=== PATIENT | female | born 1960 | race Caucasian/White ===

== ENCOUNTER 2018-01-02 11:36 | Observation (INO) ==
--- NOTE | 2018-01-02 12:04 | Anesthesia Evaluation PreOp ---
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 RSD. Hx Bipolar d/o - hospitalized at least once for exacerbation w/ psychotic features) Other Medical History: Denies Any Significant HX Anesthesia History: No Prior Anesthetic Complications, Past Anesthesia (C- section x 2, C6-C7 ACDF, Hyster, Sinus surgery) Alcohol Use: none Drug use: none Medications and Allergies Albuterol Neb [Proventil Neb] 2.5 mg IH Q4HR PRN 01/02/18 [History] Albuterol Sulfate [Ventolin Hfa] 2 puff IH Q4H PRN 01/02/18 [History] Amitriptyline [Elavil] 25 mg PO HS 01/02/18 [History] Amlodipine Besylate [Amlodipine Besylate] 10 mg PO HS 01/02/18 [History] Calcium Carbonate/Vitamin D3 [Calcium 500 + Vit D Caplet] 1 tab PO DAILY [History] Cetirizine HCl [Cetirizine HCl] 10 mg PO DAILY 01/02/18 [History] Fluticasone Propionate Nasal [Flonase] 1 spr NS DAILY PRN 01/02/18 [History] Gabapentin [Neurontin] 300 mg PO BID 01/02/18 [History] Melatonin/Pyridoxine HCl (B6) [Melatonin 5 mg Tablet] 1 tab PO HS 01/02/18 [ History] Montelukast [Singulair] 10 mg PO HS 01/02/18 [History] Pravastatin Sodium [Pravachol] 40 mg PO HS 01/02/18 [History] diazePAM [Valium] 5 mg PO BID PRN 01/02/18 [History] 3 Allergy/AdvReac Type Severity Reaction Status Date / Time codeine Allergy Hives Verified 01/02/18 12:10 celecoxib [From Celebrex] AdvReac Palpitation Verified 01/02/18 12:10 s rofecoxib [From Vioxx] AdvReac Palpitation Verified 01/02/18 12:10 s - Meds/Allergy Pre-op Review Medications Reviewed: Yes Allergies Reviewed: Yes Beta Blockers on Current Med List: No Anesthesia Results - Labs Laboratory Tests 12/25/17 12/25/17 16:11 16:11 WBC 9.9 Hgb 13.9 Hct 40.1 Plt Count 201 Sodium 139 Potassium 3.9 Chloride 103 Carbon Dioxide 28 BUN 15 Creatinine 0.77 Est GFR (Non-Af Amer) > 60 - Imaging EKG: image reviewed (52bpm - SINUS BRADYCARDIA POSSIBLE ANTERIOR MYOCARDIAL INFARCTION, OF INDETERMINATE AGE Electronically Signed On 11-08-2017 16:40:26 EDT by Antoni Hollingsworth) Anesthesia Exam O2 Sat Height 1.57 m Height 1.57 m Weight 88.904 kg Weight 88.904 kg O2 Sat by Pulse Oximetry 95 Vital Signs Temp Pulse Resp BP Pulse Ox 97.6 F 74 18 134/59 95 01/02/18 12:02 01/02/18 12:02 01/02/18 12:02 01/02/18 12:02 01/02/18 12:02 Height: 5'2" Weight: 197# BMI = 36 NPO (# of Hours): MNOc - HEENT Pupil (Motor): Pupils equal, EOMI Mallampati: III Teeth: Edentulous Oral Opening: Greater than 3 - DRY ROLLER LOC: Oriented DRY ROLLER Motor: Normal RUE, Normal LUE, Normal RLE, Normal LLE, Normal Face DRY ROLLER Sensory: Normal: RUE, LUE, RLE, LLE, Face - Cardiac Rhythm: Regular Murmur: None - Pulmonary Breath Sounds: bilateral Clear Respiratory Effort: Symmetrical Anesthesia Assess/Plan ASA Score: 3 (Obesity, Anxiety/Depression, RSD, HTN, Chol, Smoker, Asthma)
[2018-01-02] MEDS ORDERED: Acetaminophen IV 1,000 MG/100 ML INFUS..BTL IVPB ONE (12:13)
[2018-01-02] MEDS ORDERED: Pregabalin 75 MG CAPSULE PO ONE (12:13)
[2018-01-02] MEDS ORDERED: Famotidine 20 MG/2 ML VIAL IVP ONE (12:13)
[2018-01-02] MEDS ORDERED: *HR* LORazepam 1 MG TABLET PO PRN (12:14)
[2018-01-02] MEDS ORDERED: CeFAZolin Syr 2,000MG/20 ML 2,000 MG/20 ML SYRINGE IVPB ONE (12:30)
[2018-01-02] MEDS ORDERED: Albuterol 2.5 MG/3 ML NEBULIZER IH ONE (12:30)
[2018-01-02] MEDS ORDERED: Ringers Solution, Lactated 1,000 ML IVC SCH (12:30)
[2018-01-02] MEDS ORDERED: Ondansetron 4 MG/2 ML VIAL ONE (12:46)
[2018-01-02] MEDS ORDERED: *HR* Succinylcholine 200 MG/10 ML VIAL IVP ONE (12:46)
[2018-01-02] MEDS ORDERED: Lidocaine -MPF 2% 2 ML VIAL ONE (12:46)
[2018-01-02] MEDS ORDERED: Dexamethasone 4 MG/ML VIAL ONE ×2 (12:46→14:33)
[2018-01-02] MEDS ORDERED: Ketorolac 30 MG/ML VIAL ONE (12:46)
[2018-01-02] MEDS ORDERED: *HR* Midazolam HCl 2 MG/2 ML VIAL ONE ×2 (12:47→12:48)
[2018-01-02] MEDS ORDERED: *HR* Propofol 200 MG/20 ML VIAL IVP ONE (12:47)
[2018-01-02] MEDS ORDERED: *HR* FentaNYL (PF) 100 MCG/2 ML VIAL ONE ×2 (12:47→14:58)
--- NOTE | 2018-01-02 12:58 | History & Physical Report ---
Date of Encounter: 01/02/18 Time of Encounter: 12:57 24 Hour HP Update - Instructions Instructions: If the History and Physical is less than 30 days old and was completed prior to A.M. admission and or procedure and has NOT been updated on calendar day of procedure please complete this update prior to performing procedure. - Update Patient reports changes in Medical Condition: No Changes in examination, assessment, or condition: No Changes in Medication: No Preop tests/diagnostics Reviewed: Yes Surgery Remains Indicated: Yes Consent for Planned Operative Procedure(s) Verified: Yes
--- NOTE | 2018-01-02 13:01 | Discharge Summary ---
Outpatient Proc Discharge Plan - Plan Additional Instructions: POST-OPERATIVE INSTRUCTIONS ARTHROSCOPIC SHOULDER REPAIR Your recovery after shoulder surgery can take 6-9 months (and sometimes up to a year) to fully recover. It takes 12 weeks for the repair to fully heal, so it is very important to follow all precautions after surgery as directed. These instructions are intended to help you control swelling and pain, and to allow your shoulder and repaired tissues to heal. These instructions are a general guideline, because no patient or procedure is the same. If needed, your surgeon will give you further specific instructions. SLING You are required to wear your sling at all times (including sleeping) until your follow up appointment. This is necessary to protect your repair. You may remove it to work on your hand, wrist, and elbow exercises, for getting dressed , and for hygiene. Otherwise, it should remain on at all times. ICE It is recommended to ice your shoulder for 20 minutes per hour using an ice pack, Cryo Cuff if provided, or a bag of frozen peas. Ice can be especially helpful for the first several days after surgery. It can then be used as needed for pain and swelling. PAIN BLOCK/PAIN CATHETER The pain block/catheter is intended for pain relief and can last for up to 48 hours. During this time, you will not experience pain and will not be able to move your hand and fingers. It will give you the sensation of your arm being paralyzed. THIS IS TEMPORARY UNTIL THE BLOCK WEARS OFF. It is recommended that you start your pain medication even though you are getting pain relief from the block. It is more difficult to control the pain once the block wears off, then to keep a constant level of the pain medication in your system. MEDICATIONS You should resume all of your normal medications after shoulder surgery. If you are on blood thinners, these should be discussed with our team to decide on a date to resume them (typically the day after surgery). You will be given prescriptions for pain medications: o Fill the pain medications immediately and begin taking the medications before your nerve block wears off. You are encouraged to take the pain medications as directed on the prescription, and on a regular schedule for the first 3-4 days after surgery. o Do not let the pain get "ahead" of the pain medications since then it will be very difficult for you to get adequate pain control. o Even with the nerve block from surgery, it is recommended that you start on the pain medications after surgery to avoid the block wearing off without having pain medications in your system. o As the pain decreases, you may decrease the pain medication and switch to extra strength Tylenol if needed. o Avoid driving and consuming alcohol while taking pain medication. o Common side effects of pain medication are nausea, drowsiness, and constipation. Consider taking medication with food, and also consider using an [id number]-ldtfiev stool softener. DRESSING Keep the surgical dressing clean and dry for the first 72 hours (3 days) after surgery. You may remove the dressing 3 days postop and apply Band-Aids over small incisions and you may tape gauze pads over the larger incisions. Please leave the Steri-Strips intact. They will fall off on their own. If you have drainage more than 5 days after surgery, please contact our office for advice. SHOWER You may shower and get the incisions wet 5 days after surgery, as long as there is no drainage from the incisions. Avoid letting the shower stream hit the incisions directly until the sutures are removed. DO NOT scrub incisions or soak under water (bathtub, swimming pool or hot tub etc.) Pat the shoulder dry and then re-apply the dressing SLEEPING You may find it more comfortable to sleep in a semi-reclined position (ie. recliner type chair or propped up on pillows) following shoulder surgery. You may return to sleeping in your bed whenever it feels comfortable to do so. EXERCISES You may come out of your sling 3-4 times/day to move your elbow, wrist, and hand and fingers. Remember no active motion of the shoulder (moving the arm without assistance from someone else) until follow up. We will make specific recommendations about physical therapy will be determined at your first postoperative appointment. FOLLOW UP APPOINTMENTS Your first follow up appointment is generally 10-14 days after surgery. Please refer to your preoperative packet for the date and time or contact the office after surgery to confirm this appointment. Please wait until after first follow up appointment for physical therapy instructions Wound care, pain management, and a review of your surgical procedure will be discussed at your first post-operative appointment Additional appointments are scheduled according to the type of surgery that you had and how you are progressing. PRECAUTIONS After anesthesia, rest for 24 hours. General anesthesia may cause a sore throat, jaw discomfort or muscle aches. These symptoms can last for one or two days. Do not drive, drink alcoholic beverages or make any important or legal decisions during this time. Avoid placing arm behind back (tucking in shirt, putting on belt), and do not lean on affected arm or use arm to push up from a seated or laying position. A good general rule is to keep your arm where you can see it. Keep your first few meals after surgery light and drink plenty of fluids, and some people are nauseas after surgery. Smoking increases your risk of infection and can delay healing times. If you smoke, you are encouraged to quit, cut back or at least quit smoking during the post-operative period. Pain medications are important for the first few days after surgery to treat postoperative pain. Addiction, tolerance, and side effects are a big concern. Decrease the pain medications as soon as you can. This is typically after the first few days. Most patients require narcotic pain medications only for the first few weeks after surgery (even large procedures). Prolonged use increases the risk of problems with these medications. NOTIFY THE OFFICE IMMEDIATELY IF YOU DEVELOP ANY OF THE FOLLOWING: Increased redness or swelling over the incision area Incision area is warm or hot to touch Incision has foul smelling drainage Relentless pain, nausea, vomiting, bleeding or drainage Severe calf pain or chest pain You develop a fever greater than 101.4 more than 48 hours after surgery If you having an emergency that requires immediate attention go to the nearest emergency room or call 911. Please contact the office with any other questions or concerns that you may have regarding your surgery. Home Medications: Albuterol Neb [Proventil Neb] 2.5 mg IH Q4HR PRN 01/02/18 [History] Albuterol Sulfate [Ventolin Hfa] 2 puff IH Q4H PRN 01/02/18 [History] Amitriptyline [Elavil] 25 mg PO HS 01/02/18 [History] Amlodipine Besylate [Amlodipine Besylate] 10 mg PO HS 01/02/18 [History] Calcium Carbonate/Vitamin D3 [Calcium 500 + Vit D Caplet] 1 tab PO DAILY [History] Cetirizine HCl [Cetirizine HCl] 10 mg PO DAILY 01/02/18 [History] Fluticasone Propionate Nasal [Flonase] 1 spr NS DAILY PRN 01/02/18 [History] Gabapentin [Neurontin] 300 mg PO BID 01/02/18 [History] Melatonin/Pyridoxine HCl (B6) [Melatonin 5 mg Tablet] 1 tab PO HS 01/02/18 [ History] Montelukast [Singulair] 10 mg PO HS 01/02/18 [History] Pravastatin Sodium [Pravachol] 40 mg PO HS 01/02/18 [History] diazePAM [Valium] 5 mg PO BID PRN 01/02/18 [History]
[2018-01-02] MEDS ORDERED: ROPIVACAINE HCL/PF 0.5% 30 ML VIAL ONE (13:09)
[2018-01-02] MEDS ORDERED: Bupivacaine/Clonidine Syringe 1 EACH SYRINGE ONE (13:09)
[2018-01-02] MEDS ORDERED: MethylPREDNISolone Acet(DEPOT) 80 MG/ML VIAL ONE (13:24)
[2018-01-02] MEDS ORDERED: *HR* EPINEPHrine 30 MG/30 ML MDV ONE (13:25)
[2018-01-02] MEDS ORDERED: Lidocaine/EPI 1:100k 1% 20 ML VIAL ONE (13:27)
[2018-01-02] MEDS ORDERED: Tetracaine/PF 20 MG/2 ML AMPUL ONE (13:28)
[2018-01-02] MEDS ORDERED: Lidocaine -MPF 4% 5 ML AMPUL ONE (14:31)
--- NOTE | 2018-01-02 15:25 | Discharge Summary ---
Outpatient Proc Discharge Plan - Plan Additional Instructions: POST-OPERATIVE INSTRUCTIONS ARTHROSCOPIC SHOULDER REPAIR Your recovery after shoulder surgery can take 6-9 months to fully recover. These instructions are intended to help you control swelling and pain, and to allow your shoulder to heal. These instructions are a general guideline, because no patient or procedure is the same. If needed, your surgeon will give you further specific instructions. SLING You may remove your sling as tolerated it to move your shoulder, hand, wrist , and elbow. When you are comfortable, you may discontinue the sling entirely. ICE It is recommended to ice your shoulder for 20 minutes per hour using an ice pack, Cryo Cuff if provided, or a bag of frozen peas. Ice can be especially helpful for the first several days after surgery. It can then be used as needed for pain and swelling. PAIN BLOCK/PAIN CATHETER The pain block/catheter is intended for pain relief and can last for up to 48 hours. During this time, you will not experience pain and will not be able to move your hand and fingers. It will give you the sensation of your arm being paralyzed. THIS IS TEMPORARY UNTIL THE BLOCK WEARS OFF. It is recommended that you start your pain medication even though you are getting pain relief from the block. It is more difficult to control the pain once the block wears off, then to keep a constant level of the pain medication in your system. MEDICATIONS You should resume all of your normal medications after shoulder surgery. If you are on blood thinners, these should be discussed with our team to decide on a date to resume them (typically the day after surgery). You will be given prescriptions for pain medications: o Fill the pain medications immediately and begin taking the medications before your nerve block wears off. You are encouraged to take the pain medications as directed on the prescription, and on a regular schedule for the first 3-4 days after surgery. o Do not let the pain get "ahead" of the pain medications since then it will be very difficult for you to get adequate pain control. o Even with the nerve block from surgery, it is recommended that you start on the pain medications after surgery to avoid the block wearing off without having pain medications in your system. o As the pain decreases, you may decrease the pain medication and switch to extra strength Tylenol if needed. o Avoid driving and consuming alcohol while taking pain medication. o Common side effects of pain medication are nausea, drowsiness, and constipation. Consider taking medication with food, and also consider using an nixz-cpf-cuamcek stool softener. DRESSING Keep the surgical dressing clean and dry for the first 72 hours (3 days) after surgery. You may remove the dressing 3 days postop and apply Band-Aids over small incisions and you may tape gauze pads over the larger incisions. Please leave the Steri-Strips intact. They will fall off on their own. If you have drainage more than 5 days after surgery, please contact our office for advice. SHOWER You may shower and get the incisions wet 5 days after surgery, as long as there is no drainage from the incisions. Avoid letting the shower stream hit the incisions directly until the sutures are removed. DO NOT scrub incisions or soak under water (bathtub, swimming pool or hot tub etc.) Pat the shoulder dry and then re-apply the dressing SLEEPING You may find it more comfortable to sleep in a semi-reclined position (ie. recliner type chair or propped up on pillows) following shoulder surgery. You may return to sleeping in your bed whenever it feels comfortable to do so. EXERCISES We will make specific recommendations about physical therapy will be determined at your first postoperative appointment. FOLLOW UP APPOINTMENTS Your first follow up appointment is generally 10-14 days after surgery. Please refer to your preoperative packet for the date and time or contact the office after surgery to confirm this appointment. Please wait until after first follow up appointment for physical therapy instructions Wound care, pain management, and a review of your surgical procedure will be discussed at your first post-operative appointment Additional appointments are scheduled according to the type of surgery that you had and how you are progressing. PRECAUTIONS After anesthesia, rest for 24 hours. General anesthesia may cause a sore throat, jaw discomfort or muscle aches. These symptoms can last for one or two days. Do not drive, drink alcoholic beverages or make any important or legal decisions during this time. Keep your first few meals after surgery light and drink plenty of fluids, and some people are nauseas after surgery. Smoking increases your risk of infection and can delay healing times. If you smoke, you are encouraged to quit, cut back or at least quit smoking during the post-operative period. Pain medications are important for the first few days after surgery to treat postoperative pain. Addiction, tolerance, and side effects are a big concern. Decrease the pain medications as soon as you can. This is typically after the first few days. Most patients require narcotic pain medications only for the first few weeks after surgery (even large procedures). Prolonged use increases the risk of problems with these medications. NOTIFY THE OFFICE IMMEDIATELY IF YOU DEVELOP ANY OF THE FOLLOWING: Increased redness or swelling over the incision area Incision area is warm or hot to touch Incision has foul smelling drainage Relentless pain, nausea, vomiting, bleeding or drainage Severe calf pain or chest pain You develop a fever greater than 101.4 more than 48 hours after surgery If you having an emergency that requires immediate attention go to the nearest emergency room or call 911. Please contact the office with any other questions or concerns that you may have regarding your surgery. Home Medications: Albuterol Neb [Proventil Neb] 2.5 mg IH Q4HR PRN 01/02/18 [History] Albuterol Sulfate [Ventolin Hfa] 2 puff IH Q4H PRN 01/02/18 [History] Amitriptyline [Elavil] 25 mg PO HS 01/02/18 [History] Amlodipine Besylate [Amlodipine Besylate] 10 mg PO HS 01/02/18 [History] Calcium Carbonate/Vitamin D3 [Calcium 500 + Vit D Caplet] 1 tab PO DAILY [History] Cetirizine HCl [Cetirizine HCl] 10 mg PO DAILY 01/02/18 [History] Fluticasone Propionate Nasal [Flonase] 1 spr NS DAILY PRN 01/02/18 [History] Gabapentin [Neurontin] 300 mg PO BID 01/02/18 [History] Melatonin/Pyridoxine HCl (B6) [Melatonin 5 mg Tablet] 1 tab PO HS 01/02/18 [ History] Montelukast [Singulair] 10 mg PO HS 01/02/18 [History] Pravastatin Sodium [Pravachol] 40 mg PO HS 01/02/18 [History] diazePAM [Valium] 5 mg PO BID PRN 01/02/18 [History]
[2018-01-02] MEDS ORDERED: *HR* OxyCODONE/APAP 5/325 TABLET PO ONE (15:26)
--- NOTE | 2018-01-02 15:38 | Orthopedic Operative Note ---
Date of procedure: 01/02/18 Procedure: Procedure: 1. Right shoulder arthroscopic extensive debridement 2. Right shoulder arthroscopic biceps tenodesis 3. Right shoulder arthroscopic subacromial decompression Preoperative Diagnosis: Right shoulder biceps tendonitis, impingement, rotator cuff tear Postoperative Diagnosis: Right shoulder biceps tendonitis, impingement, partial thickness articular sided rotator cuff tear involving less than 50% tendon insertion Surgeon: Matthieu Eldridge MD Recordings Librarian: none Anesthesia: General with regional block EBL: 5 cc Complications: None INDICATIONS: This is a 57 yo F with a long history of right shoulder pain, worse over the past few months, with exam and imaging findings consistent with biceps tendonitis, partial thickness rotator cuff tear and impingement. The patient had continued pain despite extensive non-operative management, including injections, therapy and anti-inflammatories, and so at this point elected for right shoulder arthroscopy with glenohumeral debridement, biceps tenodesis, possible rotator cuff repair and subacromial decompression and treatments of other injuries as indicated. The risks and benefits of the procedure were fully explained. Those risks include but are not limited to, infection, neurovascular injury, continued pain, arthritis, stiffness of the shoulder, further injury, need for further surgery, DVT, PE, loss of limb, and loss of life. The patient understood all of these risks and wished to proceed. Informed consent was obtained. OPERATIVE REPORT: The patient was identified in the holding area. The right upper extremity was marked, the patient was taken to the operating room and placed in the supine position. All bony prominences were well padded. The anesthesiologist performed successful general anesthetic for the remainder of the case. The patient's head, neck and airway were secured and monitored throughout the case by anesthesia. The patient was then placed in the beachchair position. Preoperative antibiotics were given prior to incision. Surgical timeout was performed. A standard posterior portal was established. Diagnostic shoulder arthroscopy was then performed. The glenohumeral joint was intact with minimal cartilage wear on the glenoid. There was degenerative tearing of the anterior and superior labrum. The biceps showed significant wear with intraarticular tenosynovitis and tearing near its insertion at the superior labrum. There were no loose bodies within the joint. The rotator cuff showed partial thickness articular sided tearing with less than 5mm exposure of the greater tuberosity. Subscapularis was intact. An anterior portal was then established using an outside in technique. Biceps tenodesis was then performed using the RAUL technique. The biceps was marked with a spinal needle and #2 fiberwire was shuttled in a mattress fashion through the tendon. The biceps tendon was then removed from the insertion on the labrum. Shaver was introduced into the joint and the frayed aspect of the anterior and superior labrum was mechanically debrided, as was the undersurface of the rotator cuff. A PDS was used to medina the rotator cuff tear. The arthroscope was then placed into the anterior portal to better view the posterior structures and ensure no other injury. The arthroscope was then removed from the joint and placed into the subacromial space from the posterior portal. There was a large amount of inflamed bursa in the subacromial space. Lateral portal was established using outside in technique. Shaver was introduced in the subacromial space and the bursa was debrided. The biceps sutures were retrieved and tied through a cannula, anchoring the biceps in the bicipital groove and completing the suprapectoral tenodesis. The rotator cuff was visualized from both posterior and lateral portal and was found to be intact and moved well as a unit. There was a large anterolateral acromial spur. Cautery was used to reflect the CA ligament off the anterior acromion without full removal of the ligament. A valeria was then used to remove the anterior acromial spur and complete subacromial decompression. The arthroscope was then removed from the joint. Portals were closed with 3-0 nylon. A sterile dressing was placed and the patient was placed in a sling. The patient was awoken and taken to the PACU in stable condition. There were no complications. Post op plan: The patient will follow the biceps tenodesis protocol Was there an electrician's assistant present: No Estimated blood loss (cc): 5
--- NOTE | 2018-01-02 19:12 | Anesthesia Evaluation Post Op ---
Date of Encounter: 01/02/18 Time of Encounter: 19:10 - Vital Signs Vital Signs: Vital Signs/O2 Sat/Glucose, Most Current Temp Pulse Resp BP Pulse Ox 01/02/18 18:42 82 16 130/82 91 01/02/18 18:12 87 16 121/72 91 01/02/18 18:02 97.9 F 80 16 128/70 92 01/02/18 17:52 82 16 119/75 92 01/02/18 17:42 85 16 115/66 93 01/02/18 17:32 98.0 F 81 16 118/68 88 01/02/18 17:22 82 16 98/65 93 01/02/18 17:12 87 16 123/68 92 01/02/18 17:02 97.7 F 85 16 113/62 94 01/02/18 16:52 88 16 130/61 93 01/02/18 16:42 81 16 115/61 95 01/02/18 16:32 97.8 F 80 16 106/65 99 01/02/18 16:22 82 16 115/63 99 01/02/18 16:12 84 14 122/64 99 01/02/18 16:02 97.7 F 78 20 138/80 93 - Lungs Lungs: Clear Ascult./Percussion - Airway Airway: Non-obstructed (Pt has an O2 requirement post-operatively and does not meet criteria for discharge to home. Pt to be admitted to hospitalist for overnight observation.) - Cardiovascular Regular Rate - Mental Status Mental Status: Alert & Oriented, Answers Appropriately - Pain Pain Scale: 0 Pain Scale used: Numeric (1 - 10) - Nausea Vomiting Nausea Vomiting: Not Present - Hydration Hydration: Ice chips - Discharge PostOp Status: Transfer Patient to floor Anes Supervising Prov Stmt: Pt seen/evaluated, VSS and pt has met criteria for discharge to floor. - MD Nathaniel
[2018-01-02] MEDS: *HR* FentaNYL (PF) 100 MCG/2 ML VIAL IVP PRN ×2 (20:51→22:09)
[2018-01-02] MEDS ORDERED: Acetaminophen 325 MG TABLET PO PRN (21:11)
[2018-01-02] MEDS ORDERED: Naloxone 0.4 MG/ML INJ IVP PRN (21:11)
[2018-01-02] MEDS ORDERED: *HR* OxyCODONE Immed Rel 5 MG TABLET PO PRN (21:11)
[2018-01-02] MEDS ORDERED: Ipratropium/Albuterol Neb 3 ML IH PRN (21:16)
[2018-01-02] MEDS ORDERED: Fluticasone Propionate Nasal 50 MCG/SPRAY BOTTLE NS PRN (21:18)
--- NOTE | 2018-01-02 21:21 | Internal Med History&Physical ---
<Marco Viramontes - Last Filed: 01/02/18 22:09> Date of Encounter: 01/02/18 Time of Encounter: 21:21 Internal Medicine - H&P: HPI Chief complaint: Shortness of breath History of present illness: Ms. Hannah is a 57 year old female history of hypertension, seasonal allergies, asthma, former secondhand admitted for hypoxia from PACU. Patient is postop day 0 from a right rotator cuff repair. Patient was hypoxic requiring noninvasive positive pressure ventilation immediately during the postoperative course. Patient states that she does not typically wear home oxygen. Patient denies any history of smoking however notes former history of secondhand smoke. Patient reports a nonproductive cough that is lasted chronically for years. Patient also notes shortness of breath that has lasted for several months. Patient reported chest pain earlier today that was related to movement in the postoperative period. Patient denies any chest pain currently. Patient denies any fevers. Patient denies any lower leg swelling. Patient reports that she does snore however does not wear a CPAP machine at night. Patient denies any abdominal pain or nausea or vomiting. Reports use of her inhaler at home as well as allergy medications for her seasonal allergies. Patient denies history of heart disease, heart attacks or stents. Patient was seen at bedside in the stepdown. Patient's on 2 L nasal cannula. Patient had a chest x-ray which showed atelectasis without focal infiltrate. Patient's lungs appear clear. Patient's resting comfortably. Past Med Surg Social Fam HX - Past Medical History Medical history: arthritis, asthma, hyperlipidemia, hypertension, other Psychiatric history: anxiety, bipolar, depression, panic disorder, prior suicide attempt - Past Surgical History Surgical History: appendectomy, cholecystectomy, hysterectomy - Social History Smoking Status: Never smoker Smokeless Tobacco Status: No Alcohol use: none Drug use: none - Family History Mother Hx Family Cardiac Disorders: Yes (HTN, CT) Hx Family Cancer: Yes (lung, lymphoma) Father Hx Family Cardiac Disorders: Yes (CT) Hx Family Respiratory Disorders: Yes (COPD) Internal Medicine - H&P: Meds Albuterol Neb [Proventil Neb] 2.5 mg IH Q4HR PRN 01/02/18 [History] Albuterol Sulfate [Ventolin Hfa] 2 puff IH Q4H PRN 01/02/18 [History] Amitriptyline [Elavil] 25 mg PO HS 01/02/18 [History] Amlodipine Besylate [Amlodipine Besylate] 10 mg PO HS 01/02/18 [History] Calcium Carbonate/Vitamin D3 [Calcium 500 + Vit D Caplet] 1 tab PO DAILY [History] Cetirizine HCl [Cetirizine HCl] 10 mg PO DAILY 01/02/18 [History] Fluticasone Propionate Nasal [Flonase] 1 spr NS DAILY PRN 01/02/18 [History] Gabapentin [Neurontin] 300 mg PO BID 01/02/18 [History] Melatonin/Pyridoxine HCl (B6) [Melatonin 5 mg Tablet] 1 tab PO HS 01/02/18 [ History] Montelukast [Singulair] 10 mg PO HS 01/02/18 [History] Pravastatin Sodium [Pravachol] 40 mg PO HS 01/02/18 [History] diazePAM [Valium] 5 mg PO BID PRN 01/02/18 [History] 3 Allergy/AdvReac Type Severity Reaction Status Date / Time codeine Allergy Hives Verified 01/02/18 12:10 celecoxib [From Celebrex] AdvReac Palpitation Verified 01/02/18 12:10 s rofecoxib [From Vioxx] AdvReac Palpitation Verified 01/02/18 12:10 s All Systems PM: A 10-system review of systems was performed and is negative for pertinent findings except as documented above in the HPI. - Constitutional Constitutional: as per HPI, no chills, no fever(s) - Cardiovascular Cardiovascular ROS IM: as per HPI, chest pain - Respiratory Respiratory: as per HPI, dyspnea, dyspnea on exertion, snoring - Gastrointestinal Gastrointestinal: as per HPI - Genitourinary Genitourinary: as per HPI - Neurological Neurological ROS: as per HPI - Constitutional Vitals: Temp Pulse Resp BP Pulse Ox 97.9 F 89 16 142/75 92 01/02/18 18:02 01/02/18 19:38 01/02/18 19:38 01/02/18 19:38 01/02/18 19:38 General appearance: Present: cooperative, A&O X 3, obese, answers questions appropriately - Head Head exam: Present: atraumatic, normocephalic - Eye Eye exam: Present: EOMI, PERRL - ENT ENT exam: Present: mucous membranes moist - Neck Neck exam general surgery: Present: full ROM, normal inspection - Respiratory Respiratory exam: Present: CTAB. Absent: accessory muscle use, prolonged expiratory phase, wheezes - Cardiovascular Cardiovascular exam: Present: +S1, +S2 - GI/Abdominal GI/Abdominal exam: Absent: firm, guarding, tenderness - Extremities Exam Extremities exam: Present: normal inspection. Absent: pedal edema Additional comments: Right shoulder and immobilizer. Dressings appear clear dry and intact. Brisk cap refill. - Neurological Exam Neurological exam: Present: alert, CN II-XII intact, no focal deficits Internal Med - H&P Results - Impressions ITS Impressions Shoulder X-Ray 01/02/18 00:00 IMPRESSION: 1. No acute abnormality. D/ / Dagoberto Montalvo MD / Dagoberto Montalvo MD Interpreting Provider: Dagoberto Montalvo MD Chest X-Ray 01/02/18 15:39 IMPRESSION: 1. Hypoinflated lungs and bilateral subsegmental atelectasis. 2. ETT tip 1.9 cm above the amy. D/ / Sarah Paulino MD / Sarah Paulino MD Interpreting Provider: Sarah Paulino MD - Assessment and plan (1) Hypoxia Current Visit: Yes Status: Acute Assessment and plan: Patient was found to have oxygen saturation in the mid 80s following general anesthesia with her rotator cuff repair. Etiology possibly related to anesthetic medications in the setting of subclinical MACIEJ. Patient denies having history of supple oxygen at home. Patient notes chronic dyspnea for several years. Denies history of tobacco use reports a history of reactive airway. Patient did have a nerve block for the procedure. Chest x-ray in the postoperative period shows findings consistent with atelectasis and hyperinflated lungs. Patient likely has an element of obstructive airway disease and may require the use of CPAP. Plan -Titrate supplemental oxygen -incentive spirometry -DuoNeb's (2) Hypertension Current Visit: Yes Status: Acute Assessment and plan: Elevated blood pressures noted during the hospital course. Patient is on amlodipine. Will restart home meds. Qualifiers: Hypertension type: unspecified Qualified Code(s): I10 - Essential (primary ) hypertension (3) S/P right rotator cuff repair Current Visit: Yes Status: Acute Assessment and plan: Management per orthopedics. (4) DVT prophylaxis Current Visit: Yes Status: Acute Assessment and plan: Subcutaneous heparin - Time Spent With Patient Total time spent is greater than 50% in coordination of care (as documented) at patient's floor/unit and/or counseling patient: <Altagracia Montana - Last Filed: 01/03/18 05:27> Date of Encounter: 01/03/18 Internal Medicine - H&P: HPI History of present illness: Ms. Hannah is a 57 year old female All Systems PM: A 10-system review of systems was performed and is negative for pertinent findings except as documented above in the HPI. - Constitutional Vitals: Temp Pulse Resp BP Pulse Ox 98.9 F 85 16 114/60 92 01/03/18 03:30 01/03/18 03:30 01/03/18 03:30 01/03/18 03:30 01/03/18 03:30 Internal Med - H&P Results - Labs CBC & Chem 7: 01/02/18 21:55 01/02/18 21:55 Labs: Short CBC 01/02/18 Range/Units 21:55 WBC 10.9 (4.3-11.1) K/mcL Hgb 13.0 (11.5-15.4) g/dL Hct 38.8 (35.3-44.9) % Plt Count 186 (140-400) K/mcL Neutrophils # 9.8 H (1.6-8.9) K/mcL BMP 01/02/18 21:55 Sodium 141 Potassium 3.7 Chloride 107 Carbon Dioxide 23 BUN 11 Creatinine 0.75 Glucose 282 H Calcium 8.6 - Impressions ITS Impressions Shoulder X-Ray 01/02/18 00:00 IMPRESSION: 1. No acute abnormality. D/ / Dagoberto Montalvo MD / Dagoberto Montalvo MD Interpreting Provider: Dagoberto Montalvo MD Chest X-Ray 01/02/18 15:39 IMPRESSION: 1. Hypoinflated lungs and bilateral subsegmental atelectasis. 2. ETT tip 1.9 cm above the amy. D/ / Sarah Paulino MD / Sarah Paulino MD Interpreting Provider: Sarah Paulino MD - Attending Attestation I have seen and examined this patient independently. I have discussed with resident physician Dr Viramontes regarding the management plan. Agree with the documentation. - Time Spent With Patient Total time spent is greater than 50% in coordination of care (as documented) at patient's floor/unit and/or counseling patient:
[2018-01-02] MEDS: Melatonin 3 MG TABLET PO SCH (22:09)
[2018-01-02] MEDS: Pyridoxine (B-6) 50 MG TABLET PO SCH (22:10)
[2018-01-02 22:27] LABS: Basophils % 0.2 %; Eosinophils % 0.1 %; Hematocrit 38.8 % (35.3-44.9); Immature Granulocytes % 0.6 % (0-4); Lymphocytes % 9.1 %; Mean Corpuscular HGB Conc 33.5 g/dL (31.6-35.5); Mean Corpuscular Hemoglobin 29.3 pg (28.0-33.3); Mean Corpuscular Volume 87.6 fL (83.0-100.0); Mean Platelet Volume 10.8 fL (9.4-12.4); Monocytes # 0.1 K/mcL (0.0-1.3); Monocytes % 0.5 %; Neutrophils # 9.8 K/mcL (1.6-8.9); Platelet Count 186 K/mcL (140-400); Red Blood Count 4.43 M/mcL (3.82-4.97); Red Cell Distribution Width 12.5 % (11.5-14.5); Segmented Neutrophils % 89.5 %
[2018-01-02 22:42] LABS: BUN/Creatinine Ratio 15 (6-26); Blood Urea Nitrogen 11 mg/dL (6-20); Calcium 8.6 mg/dL (8.6-10.3); Carbon Dioxide 23 mEq/L (23-29); Chloride 107 mEq/L (98-107); Glucose 282 mg/dL (70-105); Osmolality,Calculated 302 (280-300); Potassium 3.7 mEq/L (3.5-5.1); Sodium 141 mEq/L (136-145); eGFR For African Americans > 60 (> 60); eGFR For Non-African Americans > 60 (> 60)
[2018-01-03] MEDS: amLODIPine 5 MG TABLET PO SCH ×2 (00:31→20:51)
[2018-01-03] MEDS: *HR* HYDROcodone/Acet 5/325 mg TABLET PO PRN ×3 (00:31→15:15)
[2018-01-03] MEDS: *HR* FentaNYL (PF) 100 MCG/2 ML VIAL IVP PRN (03:22)
[2018-01-03 05:52] LABS: BUN/Creatinine Ratio 16 (6-26); Blood Urea Nitrogen 11 mg/dL (6-20); Calcium 8.8 mg/dL (8.6-10.3); Carbon Dioxide 25 mEq/L (23-29); Chloride 104 mEq/L (98-107); Glucose 249 mg/dL (70-105); Osmolality,Calculated 292 (280-300); Potassium 3.9 mEq/L (3.5-5.1); Sodium 137 mEq/L (136-145); eGFR For African Americans > 60 (> 60); eGFR For Non-African Americans > 60 (> 60)
[2018-01-03 05:53] LABS: Basophils % 0.1 %; Hematocrit 37.6 % (35.3-44.9); Hemoglobin 12.5 g/dL (11.5-15.4); Immature Granulocytes % 0.5 % (0-4); Lymphocytes # 1.1 K/mcL (0.6-4.6); Lymphocytes % 9.5 %; Mean Corpuscular HGB Conc 33.2 g/dL (31.6-35.5); Mean Corpuscular Hemoglobin 29.5 pg (28.0-33.3); Mean Corpuscular Volume 88.7 fL (83.0-100.0); Mean Platelet Volume 11.2 fL (9.4-12.4); Monocytes # 0.2 K/mcL (0.0-1.3); Neutrophils # 10.4 K/mcL (1.6-8.9); Platelet Count 188 K/mcL (140-400); Red Blood Count 4.24 M/mcL (3.82-4.97); Red Cell Distribution Width 12.6 % (11.5-14.5); Segmented Neutrophils % 87.9 %
[2018-01-03] MEDS: *HR* OxyCODONE/APAP 5/325 TABLET PO PRN ×3 (06:19→20:50)
[2018-01-03] MEDS: *HR* Heparin 5,000 UNIT/ML VIAL SQ SCH ×2 (06:19→17:09)
[2018-01-03] MEDS: Gabapentin 300 MG CAPSULE PO SCH ×2 (08:02→20:51)
[2018-01-03] MEDS: Loratadine 10 MG TABLET PO SCH (08:02)
--- NOTE | 2018-01-03 08:07 | Orthopedics Progress Note ---
Date of Encounter: 01/03/18 Time of Encounter: 08:03 Subjective Interval history: POD#1 s/p R shoulder arthroscopy, admitted post op for hypoxia, inability to wean off O2. Currently on 2L O2, denies CP or SOB. R shoulder block worn off, comfortable with minimal pain. O: AFVSS, 95% on 2L NC GEN: NAD, AAOx3 RUE: Dressing clean, dry, intact No surrounding erythema DNVI with motor and sensory exam intact over Ax/M/R/U 2+ radial pulse A/P: POD#1 s/p R shoulder arthroscopy with debridement, subacromial decompression, biceps tenodesis, admitted post op for hypoxia -Medical management per hospitalist group, appreciate recs -PT for right shoulder ordered to start ROM exercises -Follow up with me as scheduled Objective Vital signs: Vital Signs Temp Pulse Resp BP Pulse Ox 01/03/18 07:39 97.7 F 66 16 119/65 95 01/03/18 03:30 98.9 F 85 16 114/60 92 01/03/18 03:15 80 01/03/18 00:30 100 01/02/18 23:29 98.1 F 99 16 141/79 92 01/02/18 22:56 16 92 01/02/18 20:45 109 93 01/02/18 20:20 98.3 F 89 16 158/84 92 01/02/18 19:38 89 16 142/75 92 01/02/18 19:12 89 16 124/66 92 01/02/18 18:42 82 16 130/82 91 01/02/18 18:12 87 16 121/72 91 01/02/18 18:02 97.9 F 80 16 128/70 92 01/02/18 17:52 82 16 119/75 92 01/02/18 17:42 85 16 115/66 93 01/02/18 17:32 98.0 F 81 16 118/68 88 01/02/18 17:22 82 16 98/65 93 01/02/18 17:12 87 16 123/68 92 01/02/18 17:02 97.7 F 85 16 113/62 94 01/02/18 16:52 88 16 130/61 93 01/02/18 16:42 81 16 115/61 95 01/02/18 16:32 97.8 F 80 16 106/65 99 01/02/18 16:22 82 16 115/63 99 01/02/18 16:12 84 14 122/64 99 01/02/18 16:02 97.7 F 78 20 138/80 93 01/02/18 13:41 77 18 133/100 97 01/02/18 12:31 97.6 F 74 18 134/59 95 01/02/18 12:02 97.6 F 74 18 134/59 95 Intake and Output 01/02/18 01/03/18 01/03/18 23:59 07:59 15:59 Intake Total 240 / 240 Output Total 1100 / 1100 300 / 300 Balance -860 / -860 -300 / -300 Intake: Oral 240 / 240 Output: Urine 1100 / 1100 300 / 300 - Labs CBC & BMP: 01/03/18 05:09 01/03/18 05:09 Labs: Abnormal lab results WBC 11.9 K/mcL (4.3-11.1) H 01/03/18 05:09 Neutrophils # 10.4 K/mcL (1.6-8.9) H 01/03/18 05:09 Glucose 249 mg/dL (70-105) H 01/03/18 05:09 - VTE Documentation of Mechanical Device: Venous foot pump, device Consult Discharge Plan - Plan Additional Instructions: POST-OPERATIVE INSTRUCTIONS ARTHROSCOPIC SHOULDER REPAIR Your recovery after shoulder surgery can take 6-9 months to fully recover. These instructions are intended to help you control swelling and pain, and to allow your shoulder to heal. These instructions are a general guideline, because no patient or procedure is the same. If needed, your surgeon will give you further specific instructions. SLING You may remove your sling as tolerated it to move your shoulder, hand, wrist , and elbow. When you are comfortable, you may discontinue the sling entirely. ICE It is recommended to ice your shoulder for 20 minutes per hour using an ice pack, Cryo Cuff if provided, or a bag of frozen peas. Ice can be especially helpful for the first several days after surgery. It can then be used as needed for pain and swelling. PAIN BLOCK/PAIN CATHETER The pain block/catheter is intended for pain relief and can last for up to 48 hours. During this time, you will not experience pain and will not be able to move your hand and fingers. It will give you the sensation of your arm being paralyzed. THIS IS TEMPORARY UNTIL THE BLOCK WEARS OFF. It is recommended that you start your pain medication even though you are getting pain relief from the block. It is more difficult to control the pain once the block wears off, then to keep a constant level of the pain medication in your system. MEDICATIONS You should resume all of your normal medications after shoulder surgery. If you are on blood thinners, these should be discussed with our team to decide on a date to resume them (typically the day after surgery). You will be given prescriptions for pain medications: o Fill the pain medications immediately and begin taking the medications before your nerve block wears off. You are encouraged to take the pain medications as directed on the prescription, and on a regular schedule for the first 3-4 days after surgery. o Do not let the pain get "ahead" of the pain medications since then it will be very difficult for you to get adequate pain control. o Even with the nerve block from surgery, it is recommended that you start on the pain medications after surgery to avoid the block wearing off without having pain medications in your system. o As the pain decreases, you may decrease the pain medication and switch to extra strength Tylenol if needed. o Avoid driving and consuming alcohol while taking pain medication. o Common side effects of pain medication are nausea, drowsiness, and constipation. Consider taking medication with food, and also consider using an [id number] stool softener. DRESSING Keep the surgical dressing clean and dry for the first 72 hours (3 days) after surgery. You may remove the dressing 3 days postop and apply Band-Aids over small incisions and you may tape gauze pads over the larger incisions. Please leave the Steri-Strips intact. They will fall off on their own. If you have drainage more than 5 days after surgery, please contact our office for advice. SHOWER You may shower and get the incisions wet 5 days after surgery, as long as there is no drainage from the incisions. Avoid letting the shower stream hit the incisions directly until the sutures are removed. DO NOT scrub incisions or soak under water (bathtub, swimming pool or hot tub etc.) Pat the shoulder dry and then re-apply the dressing SLEEPING You may find it more comfortable to sleep in a semi-reclined position (ie. recliner type chair or propped up on pillows) following shoulder surgery. You may return to sleeping in your bed whenever it feels comfortable to do so. EXERCISES We will make specific recommendations about physical therapy will be determined at your first postoperative appointment. FOLLOW UP APPOINTMENTS Your first follow up appointment is generally 10-14 days after surgery. Please refer to your preoperative packet for the date and time or contact the office after surgery to confirm this appointment. Please wait until after first follow up appointment for physical therapy instructions Wound care, pain management, and a review of your surgical procedure will be discussed at your first post-operative appointment Additional appointments are scheduled according to the type of surgery that you had and how you are progressing. PRECAUTIONS After anesthesia, rest for 24 hours. General anesthesia may cause a sore throat, jaw discomfort or muscle aches. These symptoms can last for one or two days. Do not drive, drink alcoholic beverages or make any important or legal decisions during this time. Keep your first few meals after surgery light and drink plenty of fluids, and some people are nauseas after surgery. Smoking increases your risk of infection and can delay healing times. If you smoke, you are encouraged to quit, cut back or at least quit smoking during the post-operative period. Pain medications are important for the first few days after surgery to treat postoperative pain. Addiction, tolerance, and side effects are a big concern. Decrease the pain medications as soon as you can. This is typically after the first few days. Most patients require narcotic pain medications only for the first few weeks after surgery (even large procedures). Prolonged use increases the risk of problems with these medications. NOTIFY THE OFFICE IMMEDIATELY IF YOU DEVELOP ANY OF THE FOLLOWING: Increased redness or swelling over the incision area Incision area is warm or hot to touch Incision has foul smelling drainage Relentless pain, nausea, vomiting, bleeding or drainage Severe calf pain or chest pain You develop a fever greater than 101.4 more than 48 hours after surgery If you having an emergency that requires immediate attention go to the nearest emergency room or call 911. Please contact the office with any other questions or concerns that you may have regarding your surgery. Referrals: Lois Mitchell CNP [Primary Care Provider] -
[2018-01-03] MEDS: diazePAM 5 MG TABLET PO PRN ×2 (09:59→20:58)
[2018-01-03 12:11] LABS: Estimated Average Glucose 128 mg/dl; Hemoglobin A1C 6.1 %
[2018-01-03] MEDS ORDERED: Dextrose Gel 15 GM/37.5 ML TUBE PO PRN ×2 (14:08)
[2018-01-03] MEDS ORDERED: *HR* Dextrose 50 % in Water (Syg) 50 ML SYRINGE IVP PRN (14:08)
[2018-01-03] MEDS ORDERED: D5% in Water 1,000 ML IVC PRN (14:08)
[2018-01-03] MEDS: Insulin LISPRO 300 UNITS/3 ML VIAL SQ SCH ×2 (17:12→22:31)
--- NOTE | 2018-01-03 20:44 | Internal Med Progress Note ---
Date of Encounter: 01/03/18 Time of Encounter: 19:00 - Assessment and plan (1) Hypoxia Status: Acute (2) Asthma due to environmental allergies Status: Chronic (3) Hypertension Status: Acute Qualifiers: Hypertension type: essential hypertension Qualified Code(s): I10 - Essential (primary) hypertension (4) S/P right rotator cuff repair Status: Acute - Time Spent With Patient Total time spent is greater than 50% in coordination of care (as documented) at patient's floor/unit and/or counseling patient: - Constitutional Vitals: Temp Pulse Resp BP Pulse Ox 98.1 F 78 16 143/89 95 01/03/18 18:49 01/03/18 18:49 01/03/18 18:49 01/03/18 18:49 01/03/18 18:49 General appearance: Present: cooperative, A&O X 3, obese, answers questions appropriately Internal Medicine: Result - Labs CBC & Chem 7: 01/03/18 05:09 01/03/18 05:09 Labs: Short CBC 01/02/18 01/03/18 Range/Units 21:55 05:09 WBC 10.9 11.9 H (4.3-11.1) K/mcL Hgb 13.0 12.5 (11.5-15.4) g/dL Hct 38.8 37.6 (35.3-44.9) % Plt Count 186 188 (140-400) K/mcL Neutrophils # 9.8 H 10.4 H (1.6-8.9) K/mcL BMP 01/02/18 01/03/18 21:55 05:09 Sodium 141 137 Potassium 3.7 3.9 Chloride 107 104 Carbon Dioxide 23 25 BUN 11 11 Creatinine 0.75 0.70 Glucose 282 H 249 H Calcium 8.6 8.8 Cardiac Enzymes 01/03/18 Range/Units 10:34 Troponin I < 0.03 (< 0.04) ng/mL - Impressions Impressions Shoulder X-Ray 01/02/18 00:00 IMPRESSION: 1. No acute abnormality. D/ / Dagoberto Montalvo MD / Dagoberto Montalvo MD Interpreting Provider: Dagoberto Montalvo MD - VTE Documentation of Mechanical Device: Venous foot pump, device Consult Discharge Plan - Plan Instructions: Asthma (DC), Chronic Hypertension (DC) Additional Instructions: POST-OPERATIVE INSTRUCTIONS ARTHROSCOPIC SHOULDER REPAIR Your recovery after shoulder surgery can take 6-9 months to fully recover. These instructions are intended to help you control swelling and pain, and to allow your shoulder to heal. These instructions are a general guideline, because no patient or procedure is the same. If needed, your surgeon will give you further specific instructions. SLING You may remove your sling as tolerated it to move your shoulder, hand, wrist , and elbow. When you are comfortable, you may discontinue the sling entirely. ICE It is recommended to ice your shoulder for 20 minutes per hour using an ice pack, Cryo Cuff if provided, or a bag of frozen peas. Ice can be especially helpful for the first several days after surgery. It can then be used as needed for pain and swelling. PAIN BLOCK/PAIN CATHETER The pain block/catheter is intended for pain relief and can last for up to 48 hours. During this time, you will not experience pain and will not be able to move your hand and fingers. It will give you the sensation of your arm being paralyzed. THIS IS TEMPORARY UNTIL THE BLOCK WEARS OFF. It is recommended that you start your pain medication even though you are getting pain relief from the block. It is more difficult to control the pain once the block wears off, then to keep a constant level of the pain medication in your system. MEDICATIONS You should resume all of your normal medications after shoulder surgery. If you are on blood thinners, these should be discussed with our team to decide on a date to resume them (typically the day after surgery). You will be given prescriptions for pain medications: o Fill the pain medications immediately and begin taking the medications before your nerve block wears off. You are encouraged to take the pain medications as directed on the prescription, and on a regular schedule for the first 3-4 days after surgery. o Do not let the pain get "ahead" of the pain medications since then it will be very difficult for you to get adequate pain control. o Even with the nerve block from surgery, it is recommended that you start on the pain medications after surgery to avoid the block wearing off without having pain medications in your system. o As the pain decreases, you may decrease the pain medication and switch to extra strength Tylenol if needed. o Avoid driving and consuming alcohol while taking pain medication. o Common side effects of pain medication are nausea, drowsiness, and constipation. Consider taking medication with food, and also consider using an [id number] stool softener. DRESSING Keep the surgical dressing clean and dry for the first 72 hours (3 days) after surgery. You may remove the dressing 3 days postop and apply Band-Aids over small incisions and you may tape gauze pads over the larger incisions. Please leave the Steri-Strips intact. They will fall off on their own. If you have drainage more than 5 days after surgery, please contact our office for advice. SHOWER You may shower and get the incisions wet 5 days after surgery, as long as there is no drainage from the incisions. Avoid letting the shower stream hit the incisions directly until the sutures are removed. DO NOT scrub incisions or soak under water (bathtub, swimming pool or hot tub etc.) Pat the shoulder dry and then re-apply the dressing SLEEPING You may find it more comfortable to sleep in a semi-reclined position (ie. recliner type chair or propped up on pillows) following shoulder surgery. You may return to sleeping in your bed whenever it feels comfortable to do so. EXERCISES We will make specific recommendations about physical therapy will be determined at your first postoperative appointment. FOLLOW UP APPOINTMENTS Your first follow up appointment is generally 10-14 days after surgery. Please refer to your preoperative packet for the date and time or contact the office after surgery to confirm this appointment. Please wait until after first follow up appointment for physical therapy instructions Wound care, pain management, and a review of your surgical procedure will be discussed at your first post-operative appointment Additional appointments are scheduled according to the type of surgery that you had and how you are progressing. PRECAUTIONS After anesthesia, rest for 24 hours. General anesthesia may cause a sore throat, jaw discomfort or muscle aches. These symptoms can last for one or two days. Do not drive, drink alcoholic beverages or make any important or legal decisions during this time. Keep your first few meals after surgery light and drink plenty of fluids, and some people are nauseas after surgery. Smoking increases your risk of infection and can delay healing times. If you smoke, you are encouraged to quit, cut back or at least quit smoking during the post-operative period. Pain medications are important for the first few days after surgery to treat postoperative pain. Addiction, tolerance, and side effects are a big concern. Decrease the pain medications as soon as you can. This is typically after the first few days. Most patients require narcotic pain medications only for the first few weeks after surgery (even large procedures). Prolonged use increases the risk of problems with these medications. NOTIFY THE OFFICE IMMEDIATELY IF YOU DEVELOP ANY OF THE FOLLOWING: Increased redness or swelling over the incision area Incision area is warm or hot to touch Incision has foul smelling drainage Relentless pain, nausea, vomiting, bleeding or drainage Severe calf pain or chest pain You develop a fever greater than 101.4 more than 48 hours after surgery If you having an emergency that requires immediate attention go to the nearest emergency room or call 911. Please contact the office with any other questions or concerns that you may have regarding your surgery. Referrals: Lois Mitchell CNP [Primary Care Provider] - 01/10/18 12:00 pm (Please show up at 1145 with your discharge paper work) Matthieu Eldridge MD [Non-Partnered Physician] - 01/09/18 9:45 am Prescriptions: HYDROcodone/Acet 5/325 mg [[place] 5-325 mg] 1 tab PO Q6HR PRN 7 Days #20 tablet PRN Reason: Moderate Pain
[2018-01-03] MEDS: Melatonin 3 MG TABLET PO SCH (20:50)
[2018-01-03] MEDS: Pyridoxine (B-6) 50 MG TABLET PO SCH (20:50)
[2018-01-04] MEDS: *HR* Heparin 5,000 UNIT/ML VIAL SQ SCH ×2 (05:45→18:11)
[2018-01-04] MEDS: *HR* OxyCODONE/APAP 5/325 TABLET PO PRN ×3 (05:45→20:50)
[2018-01-04] MEDS: Insulin LISPRO 300 UNITS/3 ML VIAL SQ SCH ×4 (07:48→20:52)
[2018-01-04] MEDS: Gabapentin 300 MG CAPSULE PO SCH ×2 (07:52→20:49)
[2018-01-04] MEDS: Loratadine 10 MG TABLET PO SCH (07:52)
[2018-01-04] MEDS: Melatonin 3 MG TABLET PO SCH (20:49)
[2018-01-04] MEDS: Pyridoxine (B-6) 50 MG TABLET PO SCH (20:49)
[2018-01-04] MEDS: amLODIPine 5 MG TABLET PO SCH (20:50)
[2018-01-05] MEDS: *HR* HYDROcodone/Acet 5/325 mg TABLET PO PRN ×2 (00:37→08:31)
[2018-01-05] MEDS: *HR* OxyCODONE/APAP 5/325 TABLET PO PRN ×2 (04:20→11:15)
[2018-01-05] MEDS: *HR* Heparin 5,000 UNIT/ML VIAL SQ SCH (05:57)
[2018-01-05 07:16] VITALS: BP 111/69
[2018-01-05] MEDS: Loratadine 10 MG TABLET PO SCH (08:30)
[2018-01-05] MEDS: Gabapentin 300 MG CAPSULE PO SCH (08:30)
[2018-01-05] MEDS: diazePAM 5 MG TABLET PO PRN (08:30)
[2018-01-05] MEDS: Insulin LISPRO 300 UNITS/3 ML VIAL SQ SCH ×2 (08:31→12:26)
--- NOTE | 2018-01-05 09:51 | Discharge Summary ---
- NOTES TO OUTPATIENT PROVIDER Notes to Outpatient Provider: The patient became hypoxic after right rotator cuff surgery. It was likely caused by lung atelectasis. She also experienced some worsening of her asthma. She is back to her baseline. Orders not resulted at time of discharge: Pending orders 01/02/18 13:30 US anesthesia pain block [US] Routine Date of Encounter: 01/05/18 Time of Encounter: 09:48 - Discharge Diagnosis (1) Hypoxia Status: Acute (2) S/P right rotator cuff repair Priority: Primary Status: Acute (3) Asthma due to environmental allergies Status: Chronic (4) Hypertension Status: Acute Qualifiers: Hypertension type: essential hypertension Qualified Code(s): I10 - Essential (primary) hypertension Hospital course: Ms. Hannah is a 57 year old female -- addendum will follow Discharge discussed with: patient, nurse - Time Spent with Patient Total time spent providing and/or coordinating discharge services: Greater than 30 minutes (40 minutes) - Discharge Medications Prescriptions: HYDROcodone/Acet 5/325 mg [[place] 5-325 mg] 1 tab PO Q6HR PRN 7 Days #20 tablet PRN Reason: Moderate Pain Home Medications: Albuterol Neb [Proventil Neb] 2.5 mg IH Q4HR PRN 01/02/18 [History] Albuterol Sulfate [Ventolin Hfa] 2 puff IH Q4H PRN 01/02/18 [History] Amitriptyline [Elavil] 25 mg PO HS 01/02/18 [History] Amlodipine Besylate 10 mg PO HS 01/02/18 [History] Calcium Carbonate/Vitamin D3 [Calcium 500 + Vit D Caplet] 1 tab PO DAILY [History] Cetirizine HCl 10 mg PO DAILY 01/02/18 [History] Fluticasone Propionate Nasal [Flonase] 1 spr NS DAILY PRN 01/02/18 [History] Gabapentin [Neurontin] 300 mg PO BID 01/02/18 [History] Melatonin/Pyridoxine HCl (B6) [Melatonin 5 mg Tablet] 1 tab PO HS 01/02/18 [ History] Montelukast [Singulair] 10 mg PO HS 01/02/18 [History] Pravastatin Sodium [Pravachol] 40 mg PO HS 01/02/18 [History] diazePAM [Valium] 5 mg PO BID PRN 01/02/18 [History] HYDROcodone/Acet 5/325 mg [[place] 5-325 mg] 1 tab PO Q6HR PRN 7 Days #20 tablet 01/05/18 [Rx] Allergies/Adverse Reactions: 3 Allergy/AdvReac Type Severity Reaction Status Date / Time codeine Allergy Hives Verified 01/02/18 12:10 celecoxib [From Celebrex] AdvReac Palpitation Verified 01/02/18 12:10 s rofecoxib [From Vioxx] AdvReac Palpitation Verified 01/02/18 12:10 s Date of admission: 01/02/18 21:08 Primary care physician: Faisal Dowell Consults: 01/03/18 12:58 Consult to Occupational Therapy [CONS] Routine Comment: Evaluate, develop and implement POC Reason for Consult: discharge planning, s/p right rotator cuff surgery Does patient have active BEDREST order?: No Is patient medically & hemodynamically stable?: Yes Patient assessed for mobility or mobilized this visit?: Yes Discharging clinician: Marcial Anglin Anticipated date of discharge: 01/05/18 - Constitutional Vitals: Temp Pulse Resp BP Pulse Ox 98.1 F 60 16 111/69 94 01/05/18 07:10 01/05/18 07:10 01/05/18 07:10 01/05/18 07:10 01/05/18 07:10 General appearance: Present: cooperative, A&O X 3, answers questions appropriately - Respiratory Respiratory exam: Present: CTAB. Absent: rales, rhonchi, wheezes - Cardiovascular Cardiovascular exam: Present: RRR. Absent: diastolic murmur, gallop, rubs, systolic murmur - GI/Abdominal GI/Abdominal exam: Present: normal bowel sounds, soft. Absent: distended, tenderness - Patient Status Disposition: Home, Self-Care - Discharge Instructions Instructions: Asthma (DC), Chronic Hypertension (DC) Follow Up With: Lois Mitchell CNP [Primary Care Provider] - 01/10/18 12:00 pm (Please show up at 1145 with your discharge paper work) Matthieu Eldridge MD [Non-Partnered Physician] - 01/09/18 9:45 am Additional Instructions: POST-OPERATIVE INSTRUCTIONS ARTHROSCOPIC SHOULDER REPAIR Your recovery after shoulder surgery can take 6-9 months to fully recover. These instructions are intended to help you control swelling and pain, and to allow your shoulder to heal. These instructions are a general guideline, because no patient or procedure is the same. If needed, your surgeon will give you further specific instructions. SLING You may remove your sling as tolerated it to move your shoulder, hand, wrist , and elbow. When you are comfortable, you may discontinue the sling entirely. ICE It is recommended to ice your shoulder for 20 minutes per hour using an ice pack, Cryo Cuff if provided, or a bag of frozen peas. Ice can be especially helpful for the first several days after surgery. It can then be used as needed for pain and swelling. PAIN BLOCK/PAIN CATHETER The pain block/catheter is intended for pain relief and can last for up to 48 hours. During this time, you will not experience pain and will not be able to move your hand and fingers. It will give you the sensation of your arm being paralyzed. THIS IS TEMPORARY UNTIL THE BLOCK WEARS OFF. It is recommended that you start your pain medication even though you are getting pain relief from the block. It is more difficult to control the pain once the block wears off, then to keep a constant level of the pain medication in your system. MEDICATIONS You should resume all of your normal medications after shoulder surgery. If you are on blood thinners, these should be discussed with our team to decide on a date to resume them (typically the day after surgery). You will be given prescriptions for pain medications: o Fill the pain medications immediately and begin taking the medications before your nerve block wears off. You are encouraged to take the pain medications as directed on the prescription, and on a regular schedule for the first 3-4 days after surgery. o Do not let the pain get "ahead" of the pain medications since then it will be very difficult for you to get adequate pain control. o Even with the nerve block from surgery, it is recommended that you start on the pain medications after surgery to avoid the block wearing off without having pain medications in your system. o As the pain decreases, you may decrease the pain medication and switch to extra strength Tylenol if needed. o Avoid driving and consuming alcohol while taking pain medication. o Common side effects of pain medication are nausea, drowsiness, and constipation. Consider taking medication with food, and also consider using an [id number] stool softener. DRESSING Keep the surgical dressing clean and dry for the first 72 hours (3 days) after surgery. You may remove the dressing 3 days postop and apply Band-Aids over small incisions and you may tape gauze pads over the larger incisions. Please leave the Steri-Strips intact. They will fall off on their own. If you have drainage more than 5 days after surgery, please contact our office for advice. SHOWER You may shower and get the incisions wet 5 days after surgery, as long as there is no drainage from the incisions. Avoid letting the shower stream hit the incisions directly until the sutures are removed. DO NOT scrub incisions or soak under water (bathtub, swimming pool or hot tub etc.) Pat the shoulder dry and then re-apply the dressing SLEEPING You may find it more comfortable to sleep in a semi-reclined position (ie. recliner type chair or propped up on pillows) following shoulder surgery. You may return to sleeping in your bed whenever it feels comfortable to do so. EXERCISES We will make specific recommendations about physical therapy will be determined at your first postoperative appointment. FOLLOW UP APPOINTMENTS Your first follow up appointment is generally 10-14 days after surgery. Please refer to your preoperative packet for the date and time or contact the office after surgery to confirm this appointment. Please wait until after first follow up appointment for physical therapy instructions Wound care, pain management, and a review of your surgical procedure will be discussed at your first post-operative appointment Additional appointments are scheduled according to the type of surgery that you had and how you are progressing. PRECAUTIONS After anesthesia, rest for 24 hours. General anesthesia may cause a sore throat, jaw discomfort or muscle aches. These symptoms can last for one or two days. Do not drive, drink alcoholic beverages or make any important or legal decisions during this time. Keep your first few meals after surgery light and drink plenty of fluids, and some people are nauseas after surgery. Smoking increases your risk of infection and can delay healing times. If you smoke, you are encouraged to quit, cut back or at least quit smoking during the post-operative period. Pain medications are important for the first few days after surgery to treat postoperative pain. Addiction, tolerance, and side effects are a big concern. Decrease the pain medications as soon as you can. This is typically after the first few days. Most patients require narcotic pain medications only for the first few weeks after surgery (even large procedures). Prolonged use increases the risk of problems with these medications. NOTIFY THE OFFICE IMMEDIATELY IF YOU DEVELOP ANY OF THE FOLLOWING: Increased redness or swelling over the incision area Incision area is warm or hot to touch Incision has foul smelling drainage Relentless pain, nausea, vomiting, bleeding or drainage Severe calf pain or chest pain You develop a fever greater than 101.4 more than 48 hours after surgery If you having an emergency that requires immediate attention go to the nearest emergency room or call 911. Please contact the office with any other questions or concerns that you may have regarding your surgery. - Diet and Activity Activity: resume usual activities as tolerated - VTE Documentation of Mechanical Device: Venous foot pump, device Deep Vein Thrombosis/Pulmonary Embolism Present on Admission: No
== END 2018-01-05 16:45 | disposition home or self-care (01) ==
LOC: SAMDAY 11:36 → 2NNU 11:36 → SUATTDRO 21:08
PROVIDERS: ADMIT Internal Medicine Nephrology; ATTEND Internal Medicine

== ENCOUNTER 2018-12-01 20:03 | Inpatient (IN) ==
[2018-12-02] MEDS ORDERED: Artificial Tears SOLN 15 ML BOTTLE BOTH EYES PRN (00:16)
[2018-12-02 00:39] LABS: ABG Base Excess 2 mEq/L (-2 to 3); ABG HCO3 28 mEq/L (21-27); ABG Oxygen Saturation 100 % (95-98); ABG PCO2 43 mmHg (35-45); ABG PH 7.41 pH Units (7.32-7.45); ABG PO2 168 mmHg (85-104); ABG TCO2 29 mEq/L (20-26); Blood Gas Modality ASSIST CONTROL; Blood Gas PEEP 5 cm H2O; Blood Gas Respiration Rate 14; Blood Gas VT 450 cc
[2018-12-02] MEDS ORDERED: FentaNYL (PF) 1,000 MCG in 0.9 % Sodium Chloride 80 ML IVC SCH (00:45)
[2018-12-02] MEDS: Ipratropium/Albuterol Neb 3 ML IH SCH ×4 (03:35→15:30)
[2018-12-02] MEDS: Artificial Tears SOLN 15 ML BOTTLE BOTH EYES SCH ×4 (04:25→15:31)
[2018-12-02] MEDS ORDERED: *HR* Heparin 5,000 UNIT/ML VIAL SQ SCH (06:00)
--- NOTE | 2018-12-02 06:37 | Internal Med History&Physical ---
<Fransisco Chau - Last Filed: 12/02/18 06:43> Date of Encounter: 12/02/18 Time of Encounter: 10:35 Internal Medicine - H&P: HPI Chief complaint: overdose History of present illness: Ms. Hannah is a 58 year old female Ms. Hannah is a 58 year old female with a past medical history of hypertension, seasonal allergies, asthma came as a transfer from [place] because of overdose on Benadryl. Most of information was obtained from the note from the ER attending at the [facility] and from the mail carriers supervisor who transferred the patient to ICU. Patient was found to be unresponsive in her car with an empty bottle of Benadryl that she had recently purchased . The mail carriers supervisor could not tell how much Benadryl she ingested. Patient apparently had an altercation with her and she went to the car to cool off . Patient does have an extensive psychiatric history and she has been seen in the [place] ER in the past for auditory hallucinations and suicidal ideation. She has also been seen in the ER for complaints of depression and has made statements like "she wants to run away from her life". I'm have a suspicion that this episode is an attempted suicide. Upon arrival to the ED, patient was intubated. Patient also underwent a head CT which was normal. She had a chest x-ray which was normal for any cardio pulmonary pathology. Her ABG was normal with a pH: 7.35, pCO2: 45, HCO3: 25. Patient had no electrolyte abnormalities, no evidence of UTI. She was tested positive for benzodiazepine but then that is one of her home medication (Valium) . EKG in the [place] ED showed sinus rhythm with a rate of 88 bpm. TN interval is 172 ms. QRS duration 106 ms. QT is 421 ms QTC slightly elongated at 510 ms. R axis of 58 degrees. patient was transferred to [facility] for further management Past Med Surg Social Fam HX - Past Medical History Medical history: arthritis, asthma, hyperlipidemia, hypertension, other Additional medical history: CHRONIC LOWER BACK PAIN Psychiatric history: anxiety, bipolar, depression, panic disorder, prior suicide attempt - Past Surgical History Surgical History: appendectomy, cholecystectomy, hysterectomy Additional surgical history: CERVICAL FUSION - Social History Smoking Status: Never smoker Smokeless Tobacco Status: No Alcohol use: none Drug use: none - Family History Mother Hx Family Cardiac Disorders: Yes (HTN, [place]) Hx Family Cancer: Yes (lung, lymphoma) Father Hx Family Cardiac Disorders: Yes ([place]) Hx Family Respiratory Disorders: Yes (COPD) Internal Medicine - H&P: Meds Albuterol Neb [Proventil Neb] 2.5 mg IH Q4HR PRN 01/02/18 [History] Albuterol Sulfate [Ventolin Hfa] 2 puff IH Q4H PRN 01/02/18 [History] Amitriptyline [Elavil] 25 mg PO HS 01/02/18 [History] Amlodipine Besylate 10 mg PO HS 01/02/18 [History] Calcium Carbonate/Vitamin D3 [Calcium 500 + Vit D Caplet] 1 tab PO DAILY 01/02/18 [History] Cetirizine HCl 10 mg PO DAILY 01/02/18 [History] Fluticasone Propionate Nasal [Flonase] 1 spr NS DAILY PRN 01/02/18 [History] Gabapentin [Neurontin] 300 mg PO BID 01/02/18 [History] Melatonin/Pyridoxine HCl (B6) [Melatonin 5 mg Tablet] 1 tab PO HS 01/02/18 [History] Montelukast [Singulair] 10 mg PO HS 01/02/18 [History] Pravastatin Sodium [Pravachol] 40 mg PO HS 01/02/18 [History] diazePAM [Valium] 5 mg PO BID PRN 01/02/18 [History] Clotrimazole 1% CRM [Lotrimin 1%] 1 appl TP TID #15 gm 04/09/18 [Rx] Acetaminophen [Tylenol] 325 mg PO Q6HR PRN #20 tablet 04/30/18 [Rx] Cephalexin [Keflex] 500 mg PO BID #14 capsule 04/30/18 [Rx] Oxymetazoline HCl [Afrin] 1 spray NS QID PRN #1 bottle 04/30/18 [Rx] Saline Nasal [place] [[place] Nasal [place]] 1 applic NS BID PRN #1 spray 04/30/18 [Rx] Cephalexin [Keflex] 500 mg PO QID #27 capsule 09/15/18 [Rx] Allergy/AdvReac Type Severity Reaction Status Date / Time bee venom protein (honey bee) Allergy Hives Verified 09/15/18 21:12 codeine Allergy Hives Verified 04/09/18 19:52 celecoxib [From Celebrex] AdvReac Palpitation Verified 04/09/18 19:52 s rofecoxib [From Vioxx] AdvReac Palpitation Verified 04/09/18 19:52 s All Systems PM: A 10-system review of systems was performed and is negative for pertinent findings except as documented above in the HPI. - Constitutional Constitutional: no fever(s) - Cardiovascular Cardiovascular ROS IM: no chest pain - Respiratory Respiratory: no dyspnea, no hemoptysis - Gastrointestinal Gastrointestinal: no abdominal pain - Genitourinary Genitourinary: no hematuria - Constitutional Vitals: Temp Pulse Resp BP Pulse Ox 97.9 F 60 14 112/57 98 12/02/18 04:29 12/02/18 06:00 12/02/18 06:00 12/02/18 06:00 12/02/18 06:00 Exam: Gen.: Vitals noted. Intubated HEENT: oropharynx clear, Normocephalic, atraumatic, MMM Neck: supple, no JVD, no lymphadenopathy, no carotid bruit. Cardiac: no murmur, +S1/S2, No BLE edema, PMI non-displaced Pulmonary: CTA bilaterally, no wheezes, rales or rhonchi, equal chest expansion, unlabored breathing Abdomen: soft, nontender, BS noted, no guarding, mildly distended. No organomegaly, no pulsatile masses, Skin: warm and dry, no visible lesions. Feels warm, clammy, no rashes, no lesions, no erythema MSK: ROM not assessed. no joint swelling noted, gait not assessed while in bed because patient is intubated. Non tender calf or clubbing, no cyanosis/clubbing/ or edema Neuro: not able to perform a neuro exam because patient is sedated Internal Med - H&P Results - ABG Interpretation ABG results: 12/02/18 00:37 ABG pH 7.41 ABG pCO2 43 ABG pO2 168 H D ABG HCO3 28 H ABG Total CO2 29 H ABG O2 Saturation 100 H ABG Base Excess 2 - Impressions ITS Impressions KUB X-Ray 12/02/18 00:16 IMPRESSION: NG tube tip in the gastric antrum with the proximal side-port in the gastric body. D/ / Florentino Dodson MD / Florentino Dodson MD Interpreting Provider: Florentino Dodson MD - Assessment and Plan (1) Overdose Current Visit: No Status: Acute Assessment and plan: - Patient was found in a car with an empty bottle of Benadryl next to her. Based upon her past medical Hx, it appears to be an intentional drug overdose . -Patient was intubated in the ED at the [facility] -Currently at [facility] ICU and will undergo conservative management for Benadryl overdose. - she takes Valium as one of her meds but she's sedated on propofol , therefore concerns for BDZ withdrawals at the moment is low. -We will get a chest x-ray in the morning to make sure she does not have any developing aspiration pneumonia. Qualifiers: Qualified Code(s): T50.902A - Poisoning by unspecified drugs, medicaments and biological substances, intentional self-harm, initial encounter (2) Asthma Current Visit: No Status: Acute Assessment and plan: -Patient has a history of asthma. -He takes montelukast and abuterol as rescue inhaler. - On physical exam patient does not appear to be an asthmatic exacerbation -Currently on scheduled DuoNeb. Qualifiers: Qualified Code(s): J45.909 - Unspecified asthma, uncomplicated (3) DVT prophylaxis Current Visit: No Status: Acute Assessment and plan: sub Q Heparin - Time Spent With Patient Total time spent is greater than 50% in coordination of care (as documented) at patient's floor/unit and/or counseling patient: <Ming Marks - Last Filed: 12/02/18 07:17> Date of Encounter: 12/02/18 Internal Medicine - H&P: HPI History of present illness: Ms. Hannah is a 58 year old female All Systems PM: A 10-system review of systems was performed and is negative for pertinent findings except as documented above in the HPI. - Constitutional Vitals: Temp Pulse Resp BP Pulse Ox 97.9 F 60 14 112/57 98 12/02/18 04:29 12/02/18 06:00 12/02/18 06:45 12/02/18 06:00 12/02/18 06:45 Internal Med - H&P Results - ABG Interpretation ABG results: 12/02/18 00:37 ABG pH 7.41 ABG pCO2 43 ABG pO2 168 H D ABG HCO3 28 H ABG Total CO2 29 H ABG O2 Saturation 100 H ABG Base Excess 2 - Impressions ITS Impressions KUB X-Ray 12/02/18 00:16 IMPRESSION: NG tube tip in the gastric antrum with the proximal side-port in the gastric body. D/ / Florentino Dodson MD / Florentino Dodson MD Interpreting Provider: Florentino Dodson MD - Time Spent With Patient Total time spent is greater than 50% in coordination of care (as documented) at patient's floor/unit and/or counseling patient: - Attending Attestation I saw and evaluated the patient. I reviewed the residents note, performed my own physical examination and agree with findings and plan as documented in the residents note. Patient seen and examined on 12/02/18. Patient presented with benadryl overdose. Now on vent. Limited history but could be a suicidal attempt. Would consider psych consultation when extubated. Currently stable, no issues overnight. Acute hypoxic respiratory failure: continue ventilator management, pulmonary consult Suicide attempt: Likely benadryl overdose was suicide attempt. Consider psych consult.
[2018-12-02 07:53] LABS: Basophils % 0.2 %; Eosinophils # 0.2 K/mcL (0.0-0.6); Eosinophils % 1.4 %; Hematocrit 41.1 % (35.3-44.9); Hemoglobin 13.7 g/dL (11.5-15.4); Immature Granulocytes % 0.5 % (0-4); Lymphocytes # 1.8 K/mcL (0.6-4.6); Mean Corpuscular HGB Conc 33.3 g/dL (31.6-35.5); Mean Corpuscular Hemoglobin 29.8 pg (28.0-33.3); Mean Corpuscular Volume 89.3 fL (83.0-100.0); Mean Platelet Volume 10.7 fL (9.4-12.4); Monocytes % 6.3 %; Neutrophils # 12.2 K/mcL (1.6-8.9); Platelet Count 152 K/mcL (140-400); Red Cell Distribution Width 12.9 % (11.5-14.5); Segmented Neutrophils % 79.6 %
[2018-12-02 08:01] LABS: VBG Ionized Calcium 1.07 mmol/L (1.15-1.35)
[2018-12-02 08:12] LABS: Acetaminophen < 10 mcg/mL (10-20); BUN/Creatinine Ratio 19 (6-26); Blood Urea Nitrogen 15 mg/dL (8-23); Calcium 8.9 mg/dL (8.6-10.3); Carbon Dioxide 26 mEq/L (23-29); Chloride 104 mEq/L (98-107); Glucose 113 mg/dL (70-105); Magnesium 2.1 mg/dL (1.6-2.6); Osmolality,Calculated 292 (280-300); Potassium 3.5 mEq/L (3.5-5.1); Salicylate < 2.5 mg/dL (15.0-30.0); Sodium 140 mEq/L (136-145); eGFR For Non-African Americans > 60 (> 60)
[2018-12-02] MEDS ORDERED: Potassium Phosphate 44 MEQ in 0.9 % Sodium Chloride 250 ML IVPB PRN (08:20)
[2018-12-02] MEDS ORDERED: Chlorhexidine Rinse 15 ML MOUTHWASH MM SCH (09:00)
[2018-12-02] MEDS ORDERED: Pantoprazole 40 MG VIAL IVP SCH (12:00)
--- NOTE | 2018-12-02 16:01 | Electrocardiograph Report ---
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
--- NOTE | 2018-12-02 17:01 | Pulmonology Consult Note ---
Date of Encounter: 12/02/18 Time of Encounter: 08:00 Assessment and Plan (1) Encephalopathy acute Current Visit: Yes Status: Acute Patient developed acute encephalopathy secondary to Benadryl overdose. Patient was intubated secondary to acute encephalopathy causing possible hypoventilation leading to acute hypoxic respiratory failure (2) Acute respiratory failure with hypoxia Current Visit: Yes Status: Acute Acute respiratory failure with hypoxia intubated and mechanical ventilated low tidal volume strategy will liberate from ventilation after 2 t1/2 life of Benadryl. (3) Overdose Current Visit: No Status: Acute Patient had overdose of Benadryl not sure about other medications patient will need sitter once extubated Qualifiers: Qualified Code(s): T50.902A - Poisoning by unspecified drugs, medicaments and biological substances, intentional self-harm, initial encounter History of Present Illness Consult date: 12/02/18 Requesting physician: Fransisco Chau Reason for consult: other (altered mental status ) Chief complaint: altered mental status History of present illness: 58-year-old female with past medical history significant for hypertension, asthma overdose on one bottle of Benadryl found to be comatose patient was int ubated and mechanical ventilated admission was shifted to [facility] for management of toxic/metabolic encephalopathy with acute respiratory failure patient had QTc 520 millisec repeat QTc was 490 ms and is replaced all the electrolytes almost of the review of systems were taken from the ER chart and internal medicine H&P pulmonary was consulted for management of acute respiratory failure. Past Med Surg Social Fam HX - Past Medical History Medical history: arthritis, asthma, hyperlipidemia, hypertension, other Additional medical history: CHRONIC LOWER BACK PAIN Psychiatric history: anxiety, bipolar, depression, panic disorder, prior suicide attempt - Past Surgical History Surgical History: appendectomy, cholecystectomy, hysterectomy Additional surgical history: CERVICAL FUSION - Social History Smoking Status: Never smoker Smokeless Tobacco Status: No Alcohol use: none Drug use: none - Family History Mother Hx Family Cardiac Disorders: Yes (HTN, [place]) Hx Family Cancer: Yes (lung, lymphoma) Father Hx Family Cardiac Disorders: Yes ([place]) Hx Family Respiratory Disorders: Yes (COPD) Medications and Allergies Albuterol Neb [Proventil Neb] 2.5 mg IH Q4HR PRN 01/02/18 [History] Amitriptyline [Elavil] 25 mg PO HS 01/02/18 [History] Cetirizine HCl 10 mg PO DAILY 01/02/18 [History] Fluticasone Propionate Nasal [Flonase] 1 spr NS DAILY PRN 01/02/18 [History] Gabapentin [Neurontin] 300 mg PO BID 01/02/18 [History] Montelukast [Singulair] 10 mg PO HS 01/02/18 [History] Pravastatin Sodium [Pravachol] 40 mg PO HS 01/02/18 [History] diazePAM [Valium] 5 mg PO BID PRN 01/02/18 [History] Albuterol Sulfate [Albuterol Inhaler] 1 puff IH Q4H PRN 12/02/18 [History] Amlodipine Besylate 10 mg PO DAILY 12/02/18 [History] Sertraline [Zoloft] 150 mg PO DAILY 12/02/18 [History] risperiDONE [Risperidone] 1 mg PO DAILY 12/02/18 [History] traZODone [TraZODone] 50 mg PO DAILY 12/02/18 [History] Allergy/AdvReac Type Severity Reaction Status Date / Time bee venom protein (honey bee) Allergy Hives Verified 09/15/18 21:12 codeine Allergy Hives Verified 04/09/18 19:52 celecoxib [From Celebrex] AdvReac Palpitation Verified 04/09/18 19:52 s rofecoxib [From Vioxx] AdvReac Palpitation Verified 04/09/18 19:52 s ROS unobtainable: due to endotracheal tube All Systems: The remainder of the systems were reviewed and are negative Physical Examination Vital Signs: Vital Signs, Last 4 Hours Temp Pulse Resp BP Pulse Ox 12/02/18 16:00 99.6 F 72 13 156/68 98 12/02/18 15:30 19 97 12/02/18 15:00 99.6 F 72 15 154/67 94 12/02/18 14:00 63 14 145/72 97 12/02/18 13:24 14 134/58 97 General appearance: asleep Auscultation: bilateral: clear Cardiovascular: regular rate and rhythm Gastrointestinal: normoactive bowel sounds Extremities: no edema Musculoskeletal: no deformities normal mental status, non-focal exam, CN II-XII normal Ventilator Settings Ventilator Settings: Ventilator Settings, Last 8 Hours Ventilator Tidal Volume 450 Setting Ventilator Tidal Volume 450 Setting Ventilator Tidal Volume 450 Setting Ventilator Tidal Volume 450 Setting Ventilator Tidal Volume 450 Setting Ventilator Tidal Volume 450 Setting Ventilator Tidal Volume 450 Setting Ventilator Tidal Volume 450 Setting Ventilator Tidal Volume 450 Setting Ventilator Tidal Volume 450 Setting Ventilator Respiratory Rate 14 Setting Ventilator Respiratory Rate 14 Setting Ventilator Respiratory Rate 14 Setting Ventilator Respiratory Rate 14 Setting Ventilator Respiratory Rate 14 Setting Ventilator Respiratory Rate 14 Setting Ventilator Respiratory Rate 14 Setting Ventilator Respiratory Rate 14 Setting Ventilator Respiratory Rate 14 Setting Ventilator Respiratory Rate 14 Setting Actual Respiratory Rate 13 Actual Respiratory Rate 19 Actual Respiratory Rate 15 Actual Respiratory Rate 14 Actual Respiratory Rate 14 Actual Respiratory Rate 15 Actual Respiratory Rate 14 Actual Respiratory Rate 15 Actual Respiratory Rate 14 Actual Respiratory Rate 14 Actual Respiratory Rate 15 Positive End Expiratory 5 Pressure Positive End Expiratory 5 Pressure Positive End Expiratory 5 Pressure Positive End Expiratory 5 Pressure Positive End Expiratory 5 Pressure Positive End Expiratory 5 Pressure Positive End Expiratory 5 Pressure Positive End Expiratory 5 Pressure Positive End Expiratory 5 Pressure Positive End Expiratory 5 Pressure Positive End Expiratory 5 Pressure Peak Inspiratory Airway 12 Pressure Peak Inspiratory Airway 39 Pressure Peak Inspiratory Airway 24 Pressure Peak Inspiratory Airway 24 Pressure Peak Inspiratory Airway 26 Pressure Peak Inspiratory Airway 22 Pressure Peak Inspiratory Airway 22 Pressure Peak Inspiratory Airway 28 Pressure Peak Inspiratory Airway 22 Pressure Peak Inspiratory Airway 24 Pressure Peak Inspiratory Airway 23 Pressure Results - Laboratory Findings CBC and BMP: 12/02/18 07:39 12/02/18 07:39 ABG ABG pH 7.41 pH Units (7.32-7.45) 12/02/18 00:37 ABG pCO2 43 mmHg (35-45) 12/02/18 00:37 ABG pO2 168 mmHg (85-104) H D 12/02/18 00:37 ABG O2 Saturation 100 % (95-98) H 12/02/18 00:37 Abnormal lab findings: Abnormal lab results WBC 15.4 K/mcL (4.3-11.1) H 12/02/18 07:39 Neutrophils # 12.2 K/mcL (1.6-8.9) H 12/02/18 07:39 ABG pO2 168 mmHg (85-104) H D 12/02/18 00:37 ABG HCO3 28 mEq/L (21-27) H 12/02/18 00:37 ABG Total CO2 29 mEq/L (20-26) H 12/02/18 00:37 ABG O2 Saturation 100 % (95-98) H 12/02/18 00:37 Glucose 113 mg/dL (70-105) H 12/02/18 07:39 POC Glucose 105 mg/dL (70-99) H 12/02/18 11:22 Venous Ioniz Calcium 1.07 mmol/L (1.15-1.35) L 12/02/18 07:56 Salicylates < 2.5 mg/dL (15.0-30.0) L 12/02/18 07:39 Acetaminophen < 10 mcg/mL (10-20) L 12/02/18 07:39 - Clinical Findings Intake & Output: Intake & Output 12/02/18 12/02/18 12/02/18 07:59 15:59 23:59 Intake Total / 605 / 605 Output Total 500 / 500 400 / 400 Balance -295 / -295 Weight 87.1 kg 88 kg Consult Discharge Plan - Plan Referrals: Lois Mitchell SOCIAL SCIENCE PROFESSOR [Primary Care Provider] - Critical Care Time Critical Care Time: Yes Total Critical Care Time: 40 Attestation: I spent 40 minutes of Critical Care time with this patient. It involved decision making of high complexity to assess, manipulate, and support vital organ system failure and/or to prevent further life threatening deterioration of the patient's condition. The time involved in the performance of separately reportable procedures was not counted toward critical care time.
[2018-12-02] MEDS: *HR* Heparin 5,000 UNIT/ML VIAL SQ SCH (18:08)
[2018-12-03] MEDS: amLODIPine 5 MG TABLET PO SCH ×2 (00:30→09:53)
[2018-12-03] MEDS: *HR* Heparin 5,000 UNIT/ML VIAL SQ SCH ×2 (06:12→18:13)
[2018-12-03 06:42] LABS: Basophils % 0.3 %; Eosinophils # 0.2 K/mcL (0.0-0.6); Hematocrit 39.9 % (35.3-44.9); Hemoglobin 13.2 g/dL (11.5-15.4); Immature Granulocytes % 0.4 % (0-4); Lymphocytes % 17.8 %; Mean Corpuscular HGB Conc 33.1 g/dL (31.6-35.5); Mean Corpuscular Hemoglobin 30.4 pg (28.0-33.3); Mean Corpuscular Volume 91.9 fL (83.0-100.0); Monocytes # 0.9 K/mcL (0.0-1.3); Neutrophils # 8.1 K/mcL (1.6-8.9); Platelet Count 138 K/mcL (140-400); Red Blood Count 4.34 M/mcL (3.82-4.97); Segmented Neutrophils % 71.5 %
[2018-12-03 07:02] LABS: BUN/Creatinine Ratio 19 (6-26); Blood Urea Nitrogen 14 mg/dL (8-23); Calcium 8.7 mg/dL (8.6-10.3); Carbon Dioxide 25 mEq/L (23-29); Chloride 107 mEq/L (98-107); Glucose 123 mg/dL (70-105); Osmolality,Calculated 294 (280-300); Potassium 3.9 mEq/L (3.5-5.1); Sodium 141 mEq/L (136-145); eGFR For Non-African Americans > 60 (> 60)
[2018-12-03] MEDS ORDERED: Albuterol 2.5 MG/3 ML NEBULIZER IH PRN (07:34)
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
[2018-12-03 13:09] LABS: Bilirubin,Urine Negative (Negative); Blood,Urine Negative (Negative); Clarity,Urine Clear (Clear); Color,Urine Yellow (Yellow); Glucose,Urine (UA) Normal (Normal); Ketones,Urine Negative (Negative); Leukocyte Esterase,Urine Negative (Negative); Nitrite,Urine Negative (Negative); PH,Urine 6.5 pH Units (5.0-8.0); Protein,Urine Negative (Neg-Trace); Specific Gravity,Urine 1.022 (1.010-1.025); Urobilinogen,Urine Normal (Normal)
--- NOTE | 2018-12-03 14:26 | Internal Med Progress Note ---
Hospitalist Progress Note - Encounter Date of Encounter: 12/03/18 Time of Encounter: 14:25 - Subjective Interval History: Patient sitting on chair comfortably. Sunday at bedside. Labs reviewed with mild nuchal cytosis. Low-grade temperature last night. Denies fever chills nausea vomiting headache dizziness chest pain shortness of breath or palpitation abdominal pain urinary bowel complaint - Exam Vitals: Temp Pulse Resp BP Pulse Ox 98.2 F 71 19 105/66 95 12/03/18 07:51 12/03/18 07:51 12/03/18 07:51 12/03/18 07:51 12/03/18 07:51 Exam: General appearance: No acute distress, A&O X 3 Eye exam: EOMI, PERRLA ENT exam: Moist oral mucosa Neck nontender, supple Respiratory exam: Clear to auscultation bilaterally Cardiovascular exam: Regular rate and rhythm, no systolic murmur Abdominal exam: Soft, nontender, nondistended, positive bowel sounds Extremities exam: No calf tenderness, no pedal edema Present: Skin-no rash, warm, dry, intact Neurological exam: Alert, awake, oriented 3, CN II-XII intact, no focal deficits. No facial droop. Normal speech. Normal gait. Psych-flat affect the face - Assessment and Plan (1) Acute respiratory failure with hypoxia Current Visit: Yes Status: Acute Assessment and Plan: Due to drug overdose of Benadryl most likely. Patient got intubated and was in ICU. Improved therefore extubated and transferred out to the floor. Stable with no respiratory distress at this time (2) Overdose Current Visit: No Status: Acute Assessment and Plan: Benadryl but could be other substance that is not confirmed. Poison control is following. On admission QT prolongation on telemetry. Repeat EKG done today with no arrhythmia. No baseline 12-lead EKG at the time of admission to compare with. Will keep patient on telemetry today and repeat EKG tomorrow. The patient gets cleared medically then will transfer to inpatient psych facility [facility] tomorrow. Psychiatry on board. (3) Bipolar disorder, curr episode mixed, severe, with psychotic features Current Visit: No Status: Acute Assessment and Plan: Contributing above. High risk for suicide at this time. Psych onboard. Recommended holding psychiatric medication at this time. Continue one-to-one sitter. Inpatient psychiatry once medically stable. (4) Hypertension Current Visit: No Status: Acute (5) DVT prophylaxis Current Visit: No Status: Acute Assessment and Plan: Heparin subcutaneous (6) Leukocytosis, unspecified Current Visit: Yes Status: Acute Assessment and Plan: Trending down. Urine analysis with reflex to culture and chest x-ray ordered- rule out underlying aspiration pneumonia as patient was unresponsive and been intubated. - Time Spent with Patient Total time spent is greater than 50% in coordination of care (as documented) at patient's floor/unit and/or counseling patient: 25 - 35 minutes Plan of Care Discussed with: patient Internal Medicine: Result - Labs CBC & Chem 7: 12/03/18 06:11 12/03/18 06:11 Labs: Short CBC 12/03/18 Range/Units 06:11 WBC 11.3 H (4.3-11.1) K/mcL Hgb 13.2 (11.5-15.4) g/dL Hct 39.9 (35.3-44.9) % Plt Count 138 L (140-400) K/mcL Neutrophils # 8.1 (1.6-8.9) K/mcL BMP 12/03/18 06:11 Sodium 141 Potassium 3.9 Chloride 107 Carbon Dioxide 25 BUN 14 Creatinine 0.73 Glucose 123 H Calcium 8.7 Urine 12/03/18 Range/Units 12:30 Urine Color Yellow (Yellow) Urine Clarity Clear (Clear) Urine pH 6.5 (5.0-8.0) pH Units Ur Specific [place] 1.022 (1.010-1.025) Urine Protein Negative (Neg-Trace) mg/dL Urine Glucose (UA) Normal (Normal) mg/dL - ABG Interpretation ABG results: ABG ABG pH 7.41 pH Units (7.32-7.45) 12/02/18 00:37 ABG pCO2 43 mmHg (35-45) 12/02/18 00:37 ABG pO2 168 mmHg (85-104) H D 12/02/18 00:37 ABG O2 Saturation 100 % (95-98) H 12/02/18 00:37 - Impressions Impressions Chest X-Ray 12/03/18 07:33 IMPRESSION: 1. No active pulmonary disease. D/ / Madi Vega MD / Madi Vega MD Interpreting Provider: Madi Vega MD Consult Discharge Plan - Plan Referrals: Lois Mitchell, T[employer] WORK[employer] [Primary Care Provider] - (2) Overdose Qualifiers: Qualified Code(s): T50.902A - Poisoning by unspecified drugs, medicaments and biological substances, intentional self-harm, initial encounter (4) Hypertension Qualifiers: Hypertension type: essential hypertension Qualified Code(s): I10 - Essential (primary) hypertension
[2018-12-03] MEDS ORDERED: amLODIPine 5 MG TABLET PO SCH (21:00)
[2018-12-04] MEDS: Acetaminophen 325 MG TABLET PO PRN ×2 (02:30→13:23)
[2018-12-04] MEDS: *HR* Heparin 5,000 UNIT/ML VIAL SQ SCH (04:57)
[2018-12-04 05:04] VITALS: BP 126/91
[2018-12-04 06:08] LABS: Basophils % 0.4 %; Eosinophils # 0.3 K/mcL (0.0-0.6); Eosinophils % 3.1 %; Hematocrit 39.5 % (35.3-44.9); Immature Granulocytes % 0.4 % (0-4); Lymphocytes # 2.3 K/mcL (0.6-4.6); Lymphocytes % 22.1 %; Mean Corpuscular HGB Conc 32.9 g/dL (31.6-35.5); Mean Corpuscular Hemoglobin 30.1 pg (28.0-33.3); Mean Corpuscular Volume 91.4 fL (83.0-100.0); Monocytes # 0.8 K/mcL (0.0-1.3); Monocytes % 7.3 %; Neutrophils # 7.1 K/mcL (1.6-8.9); Platelet Count 143 K/mcL (140-400); Red Blood Count 4.32 M/mcL (3.82-4.97); Red Cell Distribution Width 12.7 % (11.5-14.5); Segmented Neutrophils % 66.7 %
[2018-12-04 06:31] LABS: BUN/Creatinine Ratio 24 (6-26); Blood Urea Nitrogen 16 mg/dL (8-23); Calcium 8.9 mg/dL (8.6-10.3); Carbon Dioxide 24 mEq/L (23-29); Chloride 106 mEq/L (98-107); Glucose 131 mg/dL (70-105); Osmolality,Calculated 293 (280-300); Sodium 140 mEq/L (136-145); eGFR For Non-African Americans > 60 (> 60)
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
== END 2018-12-04 14:40 | disposition home or self-care (01) | DRG 812 ==
LOC: SUATTDRO 23:32 → ICNU 23:32 → 3ANU 12-02 18:50
PROVIDERS: ADMIT Pediatrics; ATTEND Internal Medicine